=== PATIENT | male | born 1970 | race Caucasian/White ===

== ENCOUNTER 2022-11-08 02:10 | Day surgery (SDC) | payer OTHER, SELFPAY ==
[2022-10-24 09:03] VITALS: BMI 38.3
[2022-11-08 11:15] VITALS: BP 130/85; PULSE 85; RESP 17; TEMP 36; O2SAT 98
--- NOTE | 2022-11-08 11:45 | P.PNAN_ITS ---
Anes - Initial Pre Proc Eval Procedure: Operation Date: 11/08/22 12:30 Proposed Procedures p Colonoscopy - Rafael Rich MD Date/Time: 11/08/22 11:45 Surgeon: Rafael Rich MD Pre Op Diagnosis: positive cologuard Patient Data Age: 52 Gender: M Height: 1.93 m Weight: 141 kg Last Vital Signs Temp 36.0 C L 11/08/22 11:15 Pulse 85 11/08/22 11:15 Resp 17 11/08/22 11:15 BP 130/85 11/08/22 11:15 Pulse Ox 98 11/08/22 11:15 O2 Del Method Room Air 11/08/22 11:15 Allergies Allergy/AdvReac Type Severity Reaction Status Date / Time No Known Allergies Allergy Verified 11/08/22 11:13 Home Medications Medication Instructions Recorded Confirmed Type atorvastatin 20 mg tablet 20 mg PO DAILY 10/24/22 10/24/22 History metformin 500 mg tablet 500 mg PO BID 10/24/22 10/24/22 History Patient hx anesthesia problems: none Family hx anesthesia problems: none Results Review: All pre-operative results and documents have been reviewed as part of the pre- operative evaluation. [facility] Past Medical History Medical History Diabetes Hyperlipidemia Obesity Social History Social History Smoking status: Former smoker Tobacco type: cigarettes Alcohol intake: former Substance use type: does not use Living arrangements: with family Spiritual care concerns: No Anes - Eval Final PreProcedure Day of Procedure 11/08/22 11:45 Patient weight: obese Heart: regular rate and rhythm Lungs: clear to auscultation Airway: Mallampati scale class III Neurological: alert and oriented Last oral intake: >/= 8 hours ASA classification: III Emergent: no Anesthetic plan: proceed Anesthesia type and monitoring: general GIVS and standard monitoring Results Review: All pre-operative results and documents have been reviewed as part of the pre- operative evaluation. Informed Consent: The patient's anesthetic plan and its attendant risks and benefits were discussed with the patient/family/POA. Questions were solicited and answers provided to the satisfaction of the patient/family/POA.
--- NOTE | 2022-11-08 12:05 | PM.HPGS ---
History of Present Illness History of Present Illness Consent: Risks, benefits, and alternatives have been discussed and questions answered. Patient agrees to proceed with procedure. Chief complaint: positive cologuard Narrative: Conor Stanton is a 52 year old male here for first colonoscopy, had positive cologuard Review of Systems Constitutional: Constitutional: Denies headache(s) and Denies weakness Eyes: Eyes: Denies blurry vision ENT: Reports Normal hearing present, Denies headache(s) and Denies neck pain Cardiovascular: Cardiovascular: Denies chest pain and Denies dyspnea Respiratory: Respiratory: Denies dyspnea Gastrointestinal: Gastrointestinal: Reports no additional gastrointestinal complaints Genitourinary: Genitourinary: Denies dysuria Musculoskeletal: Musculoskeletal: Denies neck pain Integumentary/Breasts: Skin/Breast: Denies dry skin Neurologic: Reports Normal hearing present, Denies headache(s) and Denies weakness Psychiatric: Psychiatric: Denies anxiety Endocrine: Endocrine: Denies change in body appearance Hematologic/Lymphatic: Hematologic/Lymphatic: Denies easy bleeding Allergic/Immunologic: Allergic/Immunologic: Denies urticaria PMFSH Past Medical History Medical History (Updated 11/08/22 @ 12:06 by Rafael Rich MD) Diabetes Hyperlipidemia Obesity Positive colorectal cancer screening using Cologuard test Social History Social History Smoking status: Former smoker Tobacco type: cigarettes Alcohol intake: former Substance use type: does not use Living arrangements: with family Spiritual care concerns: No Meds Home Medications and Allergies Home Medications Medication Instructions Recorded Confirmed Type atorvastatin 20 mg tablet 20 mg PO DAILY 10/24/22 10/24/22 History metformin 500 mg tablet 500 mg PO BID 10/24/22 10/24/22 History Allergies Allergy/AdvReac Type Severity Reaction Status Date / Time No Known Allergies Allergy Verified 11/08/22 11:13 Vital Signs Vital Signs - 24 hr 11/08/22 11:15 Temperature 96.8 F L Pulse Rate 85 Respiratory Rate 17 Blood Pressure 130/85 Pulse Oximetry 98 Oxygen Delivery Room Air Exam Const: General: comfortable and no acute distress HENMT: Face/Nose/Sinus: Normal nares present Eyes: General: appearance normal, both eyes and all related structures Neck: Neck: no JVD Resp: Auscultation: clear to auscultation bilaterally Cardio: Rate: regular rate Rhythm: regular rhythm GI: Inspection: non-distended GI Palp: Yes Soft to palpation Skin: General skin exam: normal color Neuro: General: gait normal Speech: normal speech Extrem: General: normal to inspection Psych: Mental Status: mental status grossly normal Assessment and Plan Assessment and plan (1) Positive colorectal cancer screening using Cologuard test: Code(s): R19.5 - Other fecal abnormalities Status: Acute Assessment and Plan: colonoscopy
[2022-11-08 12:11] LABS: Glucose Point of Care 117 mg/dl (65-105)
[2022-11-08] MEDS: LACTATED RINGERS 1,000 ML 150 ML IV CONT (12:32)
[2022-11-08 12:33] VITALS: BP 108/84; PULSE 73; RESP 26; O2SAT 97
[2022-11-08 12:43] VITALS: BP 116/80; PULSE 74; RESP 18; O2SAT 98
[2022-11-08 12:51] VITALS: BP 123/80; PULSE 68; RESP 18; O2SAT 98
== END 2022-11-08 12:57 | disposition home or self-care (01) ==
PROVIDERS: PCP Family Medicine; Visit Provider Internal Medicine Gastroenterology
PROC: 0DJD8ZZ Inspection of Lower Intestinal Tract, Via Natural or Artificial Opening Endoscopic (ICD-10-PCS; CPT 45378; principal; 2022-11-08 12:30)
DX: R19.5 Other fecal abnormalities (principal); D12.3 Benign neoplasm of transverse colon; K64.8 Other hemorrhoids; E11.9 Type 2 diabetes mellitus without complications; E78.5 Hyperlipidemia, unspecified; Z79.84 Long term (current) use of oral hypoglycemic drugs; E66.9 Obesity, unspecified; Z68.37 Body mass index [BMI] 37.0-37.9, adult; Z87.891 Personal history of nicotine dependence
CPT/HCPCS: 45385; 82948; 88305; J2704; J7120